=== PATIENT | female | born 1940 | race Caucasian/White ===

== ENCOUNTER 2019-05-05 12:16 | Emergency (ER) | payer OTHER, BC ==
[2019-05-05 12:23] VITALS: BP 110/68; PULSE 88; TEMP 98; BMI 34.6
--- NOTE | 2019-05-05 13:00 | PDOC ---
History of Present Illness - General Chief Complaint: Headache Stated Complaint: FALL Time Seen by Provider: 05/05/19 12:54 - History of Present Illness Initial Comments: 05/05/19 13:51 The patient is a 79 year old female with a history of Breast CA and hypothyroid who presents for evaluation following a fall. The patient reports that she rolled out of bed with reported head trauma 2 days ago prompting her presentation to the ED for further evaluation. The patient denies LOC at the time of the fall and reports that she has been asymptomatic since the fall. The patient reports some neck pain but otherwise denies headache, fevers, chills , SOB, chest pain, nausea, vomiting, abdominal pain, numbness, tingling, weakness, or changes with urination or bowel movements. Past History - Past Medical History Allergies/Adverse Reactions: Allergies Allergy/AdvReac Type Severity Reaction Status Date / Time No Known Allergies Allergy Unverified 04/08/12 14:22 Home Medications: Ambulatory Orders Celecoxib [Celebrex] 200 mg PO ASDIR 05/05/19 Levothyroxine Sodium [Synthroid] 88 mcg PO DAILY 05/05/19 Naproxen 0 mg PO ASDIR 05/05/19 Cancer: Yes (BREAST) COPD: No Thyroid Disease: Yes - Psycho Social/Smoking Cessation Hx Smoking History: Never smoked Review of Systems - Review of Systems Comments:: 05/05/19 13:56 Constitutional: No fevers, chills, fatigue, malaise HEENT: Neck pain. No Rhinorrhea, nasal congestion, visual changes Cardiovascular: No chest pain, syncope, palpitations, lightheadedness Respiratory: No Cough, SOB, Hemoptysis, Gastrointestinal: No Abdominal pain, Nausea, Vomiting, Constipation, Diarrhea, Melena Genitourinary: No Dysuria, Frequency, Urgency, Hesitancy, Hematuria, Flank pain Musculoskeletal: No Myalgia, arthralgia Skin: Forehead bruising. No rashes, itching, pallor Neurologic: No Headache, Dizziness, Numbness, Weakness, or Tingling Psychiatric: No Hallucinations. No SI or HI *Physical Exam - Vital Signs Last Vital Signs Temp Pulse Resp BP Pulse Ox 98 F 88 18 110/68 98 05/05/19 12:18 05/05/19 12:18 05/05/19 12:18 05/05/19 12:18 05/05/19 12:18 - Physical Exam 05/05/19 13:56 General Appearance: Nourished. No Apparent Distress HEENT: EOMI, RAJ. No Pharyngeal Erythema, Tonsillar Exudate, Tonsillar Erythema Neck: No Cervical Lymphadenopathy Respiratory/Chest: Lungs Clear, Normal Breath Sounds. No Crackles, Rales, Rhonchi, Wheezing Cardiovascular: Regular Rhythm, Regular Rate. No Murmur, Gallops, Rubs Gastrointestinal/Abdominal: Normal Bowel Sounds, Soft. No Guarding, Rebound, Tenderness Musculoskeletal: No CVA Tenderness Extremity: Normal Capillary Refill Integumentary: Ecchymosis to the right forehead. 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 Normal Gait. Medical Decision Making - Medical Decision Making 05/05/19 13:58 The patient is a 79 year old female with a history of Breast CA and hypothyroid who presents for evaluation following a fall. Given the patient's history and physical exam, we will obtain a head and cervical spine CT to evaluate further. We will continue to monitor and reassess while here in the ED. 05/05/19 15:[address] demonstrated no acute findings as read by our radiologist. We are comfortable discharging the patient home in stable condition. Patient made aware of impression and plan, return precautions discussed including but not limited to worsening pain or symptoms, fevers, or signs of infection, chest pain, respiratory distress, inability to tolerate oral intake, dehydration, syncope, or neurologic changes. The patient is to follow up with PMD as recommended within 1 week, follow up information provided and the patient will call for an appointment. The patient is to take medications as instructed for duration of time and continue with supportive care , avoid triggers and precipitants. Patient is safe for outpatient follow-up. Discharge - Discharge Information Problems reviewed: Yes Clinical Impression/Diagnosis: Head trauma Qualifiers: Encounter type: initial encounter Qualified Code(s): S09.90XA - Unspecified injury of head, initial encounter Fall Qualifiers: Encounter type: initial encounter Qualified Code(s): W19.XXXA - Unspecified fall, initial encounter Condition: Stable Disposition: HOME - Follow up/Referral Referrals: Marya Escobar [Primary Care Provider] - Mk Cervantes MD [Staff Physician] - - Patient Discharge Instructions Patient Printed Discharge Instructions: DI for Closed Head Injury Additional Instructions: 1) Please follow-up with your primary care doctor in the next 2-3 days. Please call tomorrow to schedule a follow up appointment. If she is not available, we have included a referral for another primary physician Dr. Fung. 2) You were given a copy of the tests performed today. Please bring the results with you and review them with your primary care doctor. Your imaging results did not show any acute changes here in the ER. 3) If you have any worsening of symptoms or any other concerns, please return to the ER immediately. Return if worsening symptoms including fevers, headache, vomiting, visual or hearing disturbances, abdominal pain, chest pain, shortness of breath, syncope, dehydration, inability to take things by mouth/vomiting, altered mental status, or worsening concerning symptoms. 4) Please continue taking your home medications as directed. - Post Discharge Activity
--- NOTE | 2019-05-06 17:23 | PDOC ---
Documentation entered by Rajesh Kauffman SCRIBE, acting as scribe for Charli Torrez MD. Charli Torrez MD: This documentation has been prepared by the Daly stark Nirvannie, SCRIBE, under my direction and personally reviewed by me in its entirety. I confirm that the documentation accurately reflects all work, treatment, procedures, and medical decision making performed by me. Attending Attestation - Resident Resident Name: Mejia Granados - ED Attending Attestation I have performed the following: I have examined & evaluated the patient, The case was reviewed & discussed with the resident, I agree w/resident's findings & plan, Exceptions are as noted - HPI HPI: 05/05/19 14:14 The patient is a 79 year old female, with a significant past medical history of breast cancer and hypothyroidism, who presents to the emergency department s/p fall two days ago with headache. As per patient, she rolled out of bed two days ago accidentally while sleeping, striking the R side of her head on the night stand. Her bed is about 2 feet from the ground. Since then, she has developed a gradual onset R sided headache for which she was advised by Dr. Avitia (opho ) yesterday to come to the ED for a CTH. She notes a bruise to the R side of her forehead. She is not on any blood thinners. She denies pain elsewhere or any other injuries. She denies any LOC, focal changes in strength/sensation, or vertigo. Denies blurry vision. She denies recent nausea, vomiting, diarrhea or constipation. She denies recent dysuria, frequency, urgency or hematuria. She denies recent chest pain or shortness of breath. Allergies: NKDA - Physicial Exam PE: 05/06/19 17:19 GENERAL: Awake, alert, and fully oriented, in no acute distress, ambulating in ED. Pleasant. HEAD: 3x3cm violaceous days old appearing ecchymosis to the right forehead. No other signs of trauma. No bony ttp. EYES: PERRLA, EOMI, sclera anicteric, conjunctiva clear ENT: Auricles normal inspection, hearing grossly normal, nares patent, oropharynx clear without exudates. Moist mucosa NECK: Normal ROM, supple, no lymphadenopathy, JVD, or masses LUNGS: Breath sounds equal, clear to auscultation bilaterally. No wheezes, and no crackles HEART: Regular rate and rhythm, normal S1 and S2, no murmurs, rubs or gallops ABDOMEN: Soft, nontender, normoactive bowel sounds. No guarding, no rebound. No masses EXTREMITIES: Normal range of motion, no edema. No clubbing or cyanosis. No cords , erythema, or tenderness BACK: No midline spinal tenderness in cervical/thoracic/lumbar region NEUROLOGICAL: Normal speech, cranial nerves intact, negative pronator drift, 5/ 5 strength in all 4 extremities, normal sensation to light touch in all 4 extremities, normal cerebellar exam, normal gait, normal tone SKIN: Warm, Dry, normal turgor, no rashes or lesions noted. - Medical Decision Making 05/06/19 17:21 79yo F presents to the ED with head trauma after a fall from bed 2 days ago. Pt is not on AC, is well appearing, neuro intact. Trauma exam revealing of ecchymosis to R forehead CTH negative. CT c-spine obtained due to age and pt was asleep, also negative Pt ambulating in ED, eager for DC. Report of CTH provided. Pt clinically stable for DC home with her son I discussed the physical exam findings, ancillary test results and final diagnoses with the patient. I answered all of the patient's questions. The patient was satisfied with the care received and felt comfortable with the discharge plan and treatment plan. The patient will call their primary care physician within 24 hours to arrange follow-up and will return to the Emergency Department with any new, persistent or worsening symptoms. Discharge - Discharge Information Problems reviewed: Yes Clinical Impression/Diagnosis: Fall Head trauma Qualifiers: Encounter type: initial encounter Qualified Code(s): S09.90XA - Unspecified injury of head, initial encounter Condition: Stable Disposition: HOME - Admission No - Follow up/Referral Referrals: Marya Escobar [Primary Care Provider] - Mk Cervantes MD [Staff Physician] - - Patient Discharge Instructions Patient Printed Discharge Instructions: DI for Closed Head Injury Additional Instructions: 1) Please follow-up with your primary care doctor in the next 2-3 days. Please call tomorrow to schedule a follow up appointment. If she is not available, we have included a referral for another primary physician Dr. Fung. 2) You were given a copy of the tests performed today. Please bring the results with you and review them with your primary care doctor. Your imaging results did not show any acute changes here in the ER. 3) If you have any worsening of symptoms or any other concerns, please return to the ER immediately. Return if worsening symptoms including fevers, headache, vomiting, visual or hearing disturbances, abdominal pain, chest pain, shortness of breath, syncope, dehydration, inability to take things by mouth/vomiting, altered mental status, or worsening concerning symptoms. 4) Please continue taking your home medications as directed. - Post Discharge Activity
== END 2019-05-05 15:49 | disposition home or self-care (01) ==
LOC: JER 12:16
DX: S09.90XA Unspecified injury of head, initial encounter (principal); W18.39XA Other fall on same level, initial encounter; Y93.89 Activity, other specified; Y92.89 Other specified places as the place of occurrence of the external cause; Z85.3 Personal history of malignant neoplasm of breast; E03.9 Hypothyroidism, unspecified
CPT/HCPCS: 70450-TC; 72125-TC; 99282-25